=== PATIENT | female | born 1945 | race Caucasian/White ===

== ENCOUNTER 2019-05-28 10:06 | Day surgery (SDC) | payer MEDICARE, BC ==
[~2019-05-28 10:06] MED LIST: LIDOCAINE HCL 1% MPF 30 SOL ONE; PROPOFOL 500 MG/50 ML EMU IV ONE
[2019-05-28 10:45] VITALS: RESP 16
[2019-05-28 13:07] VITALS: BP 114/70; PULSE 80; TEMP 98.3; O2SAT 99
== END 2019-05-28 13:03 | disposition home or self-care (01) | DRG 951 ==
LOC: SURG 10:06
PROVIDERS: ATTEND Internal Medicine Gastroenterology
DX: Z12.11 Encounter for screening for malignant neoplasm of colon (principal); Z80.0 Family history of malignant neoplasm of digestive organs; K63.89 Other specified diseases of intestine
CPT/HCPCS: J2001; J2704

== ENCOUNTER 2019-06-10 06:00 | Day surgery (SDC) | payer MEDICARE, BC ==
[~2019-06-10 06:00] MED LIST changes: +ACETAZOLAMIDE 250 MG PO ONE; -LIDOCAINE HCL 1% MPF 30 SOL ONE; -PROPOFOL 500 MG/50 ML EMU IV ONE
[2019-06-10] MEDS: CYCLOPENTOLATE 1% SOL ONE ×2 (06:15→06:28)
[2019-06-10] MEDS: PHENYLEPHRINE HCL 10% OPHTHAL SOL ONE ×2 (06:15→06:28)
[2019-06-10] MEDS: TETRACAINE HCL 0.5 % OPHTH 1 DROP SOL ONE ×3 (06:15→07:30)
[2019-06-10] MEDS: KETOROLAC 0.5% OPTH 60 DROP SOL ONE ×2 (06:16→06:28)
[2019-06-10] MEDS ORDERED: TRIMOXI ONE (06:48)
[2019-06-10] MEDS ORDERED: POVIDONE IODINE 5% SOL ONE (06:49)
[2019-06-10] MEDS ORDERED: LIDOCAINE HCL 1% MPF 30 SOL ONE (06:49)
[2019-06-10] MEDS ORDERED: BSS 500 ML 500 ML IR ONE (06:49)
[2019-06-10] MEDS ORDERED: MIDAZOLAM 2 MG/2 ML SOL ONE (06:55)
[2019-06-10] MEDS ORDERED: FENTANYL 100MCG/2ML SOL ONE (06:55)
[2019-06-10] MEDS ORDERED: ONDANSETRON HCL 4 MG/2 ML SOL ONE (07:33)
[2019-06-10 11:03] VITALS: BP 117/85; PULSE 58; RESP 20; TEMP 97.7; O2SAT 95
== END 2019-06-10 08:19 | disposition home or self-care (01) | DRG 125 ==
LOC: SURG 06:00
PROVIDERS: ATTEND Ophthalmology
DX: H25.89 Other age-related cataract (principal)
CPT/HCPCS: J2250; J2405; J3010; A9270-GY; J2001